=== PATIENT | male | born 1990 | race Caucasian/White ===

== ENCOUNTER 2020-02-26 05:09 | Emergency (ER) | payer SELFPAY ==
[2020-02-26 18:16] LABS: SARS-CoV-2 MS2 Positive; SARS-CoV-2 N Gene Negative; SARS-CoV-2 S Gene Negative; SARS-CoV-2 by NAA Not Detected (NotDetected); SARS-CoV-2 orf1ab Negative
== END 2020-02-26 05:39 | disposition home or self-care (01) ==
LOC: MADERS 05:09
DX: J06.9 Acute upper respiratory infection, unspecified (principal); L04.9 Acute lymphadenitis, unspecified; Z20.828 Contact with and (suspected) exposure to other viral communicable diseases; F17.210 Nicotine dependence, cigarettes, uncomplicated; F17.220 Nicotine dependence, chewing tobacco, uncomplicated
CPT/HCPCS: 87635; 99283; U0003

== ENCOUNTER 2021-03-11 07:46 | Emergency (ER) | payer SELFPAY ==
[2021-03-11] MEDS ORDERED: Fluorescein Opthalmic Strip ONE (08:19)
[2021-03-11] MEDS ORDERED: Tetracaine 0.5% PF 4 ML BOT ONE (08:19)
[2021-03-11] MEDS ORDERED: Lidocaine Viscous Sol 2% 15 ml UD Cup ONE (08:22)
[2021-03-11] MEDS ORDERED: Mag-Al Plus 1200 MG/1200 MG/120 MG/30 ML UDCUP ONE (08:22)
[2021-03-11] MEDS ORDERED: Boostrix 0.5 ML (Tdap) VIAL ONE (08:49)
[2021-03-12 11:22] LABS: SARS-CoV-2 PCR by NAA Not Detected (NotDetected)
== END 2021-03-11 09:01 | disposition home or self-care (01) ==
LOC: MADERS 07:46
DX: S05.02XA Injury of conjunctiva and corneal abrasion without foreign body, left eye, initial encounter (principal); J20.9 Acute bronchitis, unspecified; K21.00 Gastro-esophageal reflux disease with esophagitis, without bleeding; I10 Essential (primary) hypertension; Z23 Encounter for immunization; Z20.822 Contact with and (suspected) exposure to COVID-19; X58.XXXA Exposure to other specified factors, initial encounter
CPT/HCPCS: 71045; 87081; 87430; 87804; 90471; 90715; U0003; U0005

== ENCOUNTER 2022-11-25 23:31 | Emergency (ER) | payer BC, SELFPAY ==
[2022-11-26] MEDS ORDERED: HYDROcodone/Acetaminophen 5/325 mg Tablet ONE (00:22)
[2022-11-26] MEDS ORDERED: Gabapentin 100 MG CAP ONE (01:01)
[2022-11-26] MEDS ORDERED: Cephalexin 500 MG CAP ONE (01:01)
== END 2022-11-26 01:40 | disposition home or self-care (01) ==
LOC: MADERS 23:31
DX: S92.425A Nondisplaced fracture of distal phalanx of left great toe, initial encounter for closed fracture (principal); K08.89 Other specified disorders of teeth and supporting structures; K21.9 Gastro-esophageal reflux disease without esophagitis; F17.210 Nicotine dependence, cigarettes, uncomplicated; W20.8XXA Other cause of strike by thrown, projected or falling object, initial encounter